=== PATIENT | female | born 1950 | race Two or more races ===

== ENCOUNTER 2018-06-06 16:52 | Emergency (ER) | payer MEDICARE, MEDICAID ==
[~2018-06-06] VITALS: Ht 147.3 cm; Wt 80.4 kg
--- NOTE | 2018-06-06 17:04 | NUR ---
PT PLACED ON O2 IN TRAIGE.
--- NOTE | 2018-06-06 17:23 | NUR ---
Pt to rm 26 from lobby
[2018-06-06 17:50] LABS: CHLORIDE 105 mmol/L (98-107)
[2018-06-06] MEDS ORDERED: AZITHROMYCIN 250 MG TABLET ONE (17:50)
[2018-06-06] MEDS ORDERED: ONDANSETRON ODT 4 MG ONE (17:50)
[2018-06-06] MEDS ORDERED: ALBUTEROL SULFATE 2.5 MG/3 ML ONE (17:54)
[2018-06-06 17:55] LABS: ALBUMIN 3.5 g/dL (3.4-5.0); ANION GAP 8 mmol/L (5-15); CALCIUM 8.9 mg/dL (8.5-10.1)
[2018-06-06] MEDS ORDERED: ONDANSETRON ODT 4 MG PO ONE (18:00)
[2018-06-06] MEDS ORDERED: ALBUTEROL SULFATE 2.5 MG/3 ML NPPB ONE (18:00)
[2018-06-06] MEDS ORDERED: AZITHROMYCIN 500 MG TABLET PO ONE (18:00)
--- NOTE | 2018-06-06 18:08 | NUR ---
BREATHING TX GIVEN BY RT. ERP WAS IN FOR RE-EVAL. BROTH PROVIDED TO PT. WILL RE-ASSESS SPO2 ON RA AND D/C.
[2018-06-06 18:10] LABS: BASOPHILS # (AUTO) 0.04 x10^3/uL (0-0.1); BASOPHILS % (AUTO) 0 % (0-1); EOSINOPHILS # (AUTO) 0.11 x10^3/uL (0-0.4); EOSINOPHILS % (AUTO) 1 % (1-7); LYMPHOCYTES # (AUTO) 2.92 x10^3/uL (1-3.4); LYMPHOCYTES % (AUTO) 33 % (22-44); MD NO; MEAN CORPUSCULAR HEMOGLOBIN 30.3 pg (27.0-34.8); MEAN CORPUSCULAR HGB CONC 34.2 g/dL (32.4-35.8); MEAN CORPUSCULAR VOLUME 88.7 fL (80-100); MONOCYTES # (AUTO) 0.66 x10^3/uL (0.2-0.8); MONOCYTES % (AUTO) 7 % (2-9); NEUTROPHILS # (AUTO) 5.16 x10^3/uL (1.8-6.8); NEUTROPHILS % (AUTO) 58 % (42-75); PLATELET COUNT 299 x10^3/uL (130-400); RED BLOOD COUNT 5.23 x10^6/uL (3.82-5.3); RED CELL DISTRIBUTION WIDTH 13.3 % (9.6-15.2)
[2018-06-06 18:30] VITALS: BP 125/56
--- NOTE | 2018-06-06 18:35 | NUR ---
RA SPO2 [id number]%. OKAY TO DISCHARGE PER ERP.
--- NOTE | 2018-06-06 18:42 | NUR ---
D/C INSTRUCTIONS, MEDS, & F/U APPT RV'WD WITH PT USING [employer] DIRECTOR RADIO. PT VERBALIZES UNDERSTANDING. AMBULATED OUT OF ED WITHOUT DIFFICULTY.
== END 2018-06-06 18:45 | disposition home or self-care (01) ==
LOC: ED 18:39
DX: J20.9 Acute bronchitis, unspecified (principal); E86.0 Dehydration; I10 Essential (primary) hypertension
CPT/HCPCS: 36415; 71045; 80048; 82040; 85025; 93005; 94640; 99284; J7512; J7613; Q0162